=== PATIENT | female | born 1960 | race Caucasian/White ===

== ENCOUNTER 2018-10-15 13:37 | Outpatient (REF) | payer BC, SELFPAY | END 2018-10-15 13:57 | LOC: NCHCN 13:37 | PROVIDERS: PCP Family Medicine; Visit Provider Family Medicine | DX: N39.0 Urinary tract infection, site not specified (principal) | CPT/HCPCS: 87086 ==

== ENCOUNTER 2019-04-01 13:12 | Outpatient (REF) | payer BC, SELFPAY ==
--- NOTE | 2019-04-01 10:00 | PAPFT_PTH ---
PATIENT: Sabina Alvarado LOC: [facility] U#:[id number] AGE/SX: 58/F ROOM: RE04/01/[address]: Payton Hatfield : 1960 BED: DIS: 04/01/2019 SPEC #: [id number] RECD: 04/02/19 13:03 STATUS: SANKET REJose #: [id number] MAXIME: 04/01/19 10:[address]: Payton Hatfield DEPT: [facility] Cytology RECD BY: Nettie Hopper Tissues: 1 - CX/ENDOCX FOR PAP SMEARS Procedures: PAP THIN PREP/UVM Screening HPV DNA PROBE Comments: [id number]
== END 2019-04-01 13:32 ==
LOC: NCHCN 13:12
PROVIDERS: PCP Family Medicine; Visit Provider Family Medicine
DX: Z00.00 Encounter for general adult medical examination without abnormal findings (principal); Z12.4 Encounter for screening for malignant neoplasm of cervix; Z11.51 Encounter for screening for human papillomavirus (HPV)
CPT/HCPCS: 88142; 87624

== ENCOUNTER 2019-08-05 01:16 | Outpatient (CLI) | payer BC, SELFPAY ==
--- NOTE | 2019-08-05 13:00 | DI.MAMMO_ITS ---
EXAM: MG MAMMO SCREENING CLINICAL HISTORY: SCREENING Z12.31 TECHNIQUE: Mammograms were interpreted according to the usual protocol including computer analysis w [employer] CAD system, tomosynthesis and C-view imaging. COMPARISON: [id number] FINDINGS: The breasts are composed of heterogeneously dense tissue, which may obscure small masses, breast dens ity category C. There are no suspicious masses or suspicious microcalcifications. There has been no significant chagne when compared with prior images. IMPRESSION: Category 1, negative mammogram. Routine yearly screening is recommended. BI-RADS Cat 1 - Negative Breast Density - Category C - Heterogeneously dense
== END 2019-08-05 01:36 ==
PROVIDERS: PCP Family Medicine; Visit Provider Family Medicine
DX: Z12.31 Encounter for screening mammogram for malignant neoplasm of breast (principal)
CPT/HCPCS: 77063; 77067

== ENCOUNTER 2020-07-29 15:08 | Outpatient (REF) | payer BC, SELFPAY ==
[2020-08-03 22:40] LABS: Patient Race White; SARS-CoV-2 RNA Undetected (Undetected); SARS-CoV-2 Specimen Source Nasal
== END 2020-07-29 15:28 ==
LOC: NCHCN 15:08
PROVIDERS: PCP Family Medicine; Visit Provider Family Medicine
DX: Z20.828 Contact with and (suspected) exposure to other viral communicable diseases (principal)
CPT/HCPCS: U0003

== ENCOUNTER 2020-08-05 09:55 | Outpatient (REF) | payer BC, SELFPAY ==
[2020-08-05 22:29] LABS: HCT 39.1 % (36.0-46.0); HGB 13.2 g/dL (11.2-15.7); MCH 30.6 pg (27.0-33.0); MCHC 33.8 % (32.0-36.0); MCV 90.7 fL (80-95); MPV 10.2 fL (8.0-11.0); Platelet Count 256 10^3/uL (130-400); RBC 4.31 10^6/uL (3.93-5.22); RDW 10.8 % (11.7-14.6); RDW-SD 36.1 fL; WBC 5.23 10^3/uL (4.4-10.8)
[2020-08-05 22:55] LABS: ALT 30 U/L (14-59); AST 20 U/L (15-37); Alkaline Phosphatase 92 U/L (46-116); Anion Gap 6.9 mmol/L (3-11); BUN 12 mg/dL (7-18); Bilirubin, Total 0.4 mg/dL (0.2-1.0); CO2 27.1 mmol/L (21.0-32.0); CREATININE 0.59 mg/dL (0.55-1.02); Calcium 9.8 mg/dL (8.5-10.1); Calculated LDL 132 mg/dL (<100); Chloride 105 mmol/L (98-107); Cholesterol 232 mg/dL (<200); Glucose 92 mg/dL (74-106); HDL Cholesterol 60 mg/dL (40-60); Sodium 139 mmol/L (136-145); Total Protein 7.1 g/dL (6.4-8.2); Triglyceride 204 mg/dL (<150)
[2020-08-06 05:17] LABS: Vitamin D 25 Total 39.6 ng/ml (30-100)
== END 2020-08-05 10:15 ==
LOC: NCHCN 09:55
PROVIDERS: PCP Family Medicine; Visit Provider Family Medicine
DX: Z00.00 Encounter for general adult medical examination without abnormal findings (principal); Z86.79 Personal history of other diseases of the circulatory system; E78.5 Hyperlipidemia, unspecified; E55.9 Vitamin D deficiency, unspecified
CPT/HCPCS: 80053; 80061; 82306; 85027

== ENCOUNTER 2020-09-15 00:48 | Outpatient (CLI) | payer BC, SELFPAY ==
--- NOTE | 2020-09-15 11:55 | DI.MAMMO_ITS ---
EXAM: MAMMO SCREENING CLINICAL HISTORY: SCREENING,Z12.31 TECHNIQUE: Mammograms were interpreted according to the usual protocol including computer analysis w [employer] CAD system, tomosynthesis and C-view imaging. COMPARISON: FINDINGS: The breasts are heterogeneously dense. No dominant mass or clumped microcalcification is identified in either breast. The current examination is compared with previous examinations including July 17 and there has been no gross interval change in appearance in comparison with the prior studies. IMPRESSION: No specific evidence of malignancy at this time. Routine screening examinations are suggested at yea rly intervals in this age group according to the ACS ACR guidelines. BI-RADS Category 1 - Negative Breast Density - Category C - Heterogeneously dense
== END 2020-09-15 01:08 ==
PROVIDERS: PCP Family Medicine; Visit Provider Family Medicine
DX: Z12.31 Encounter for screening mammogram for malignant neoplasm of breast (principal)
CPT/HCPCS: 77063; 77067

== ENCOUNTER 2020-12-08 16:03 | Emergency (ER) | payer BC, SELFPAY ==
--- NOTE | 2020-12-08 16:06 | ED.GENADUL_ITS ---
Discharge Plan Disposition Patient Disposition: HOME Condition: Stable Discharge Details Clinical Impression: Fracture of right wrist Primary Care Provider: Payton Hatfield ED Provider: Jamaica Hough Home Meds and New Rx's Prescriptions: New oxycodone 5 mg tablet 5 mg PO Q6H PRN (Reason: pain) Qty: 10 RF: 0 Continued aspirin 81 MG tablet,delayed release (DR/EC) 81 mg PO DAILY RF: 0 calcium carbonate-vitamin D3 [Calcium 500 + D] 1 EACH tablet 1 ea PO DAILY RF: 0 Discharge Instructions Instructions: Wrist Fracture in Adults (ED) Additional Instructions: Rest, ice, and elevate the affected area as much as possible. Alternate tylenol and motrin as needed and directed for pain. Take the oxycodone for pain not relieved with tylenol or motrin. Call the orthopedics office tomorrow to schedule a follow up appointment. Return immediately to the emergency department if you develop any worsening or new concerning symptoms. Referrals: Elijah Stoll MD [ [facility] STAFF PHYSICIAN] - Discharge Data Discharge Physician: Jamaica Hough Medical Decision Making 60-year-old female with right wrist pain after fall on ice yesterday. Patient had an outpatient wrist x-ray today per her PCP which noted a nondisplaced intra-articular fracture of the distal radius. Question of a nondisplaced ulnar styloid fracture. Patient was sent to the ED per her pcp office for splint placement. Right wrist appears edematous with tenderness overlying the distal radius and ulna but without deformity. She has neurovascularly intact. Case discussed with orthopedics. A volar splint was placed and a sling was given. Patient already placed on orthopedics list per PCP office. She was given oxycodone. Usual and customary return precautions given prior to discharge. Medical Records Medical records reviewed: Yes I reviewed the patient's medical records. Imaging Data Radiologic Study: Radiologist's impression: XR WRIST RT COMPLETE CLINICAL HISTORY: PAIN RT WRIST, S/P FALL, M25.531. TECHNIQUE: 2D digital imaging was performed. COMPARISON: No exams were available for comparison FINDINGS: There is soft tissue swelling over the posterior aspect of the distal radius. There is a nondisplaced fracture seen through the distal radial metaphysis. There is slight impaction. There is extension to the articular surface but no visible separation. The ulnar styloid shows question of a nondisplaced fracture. The carpal bones are normally aligned. There are degenerative changes at the 1st carpal metacarpal joint. IMPRESSION: Nondisplaced intra-articular fracture of the distal radius. Question of a nondisplaced ulnar styloid fracture. HPI General Mode of arrival: ambulatory . Date/Time Provider Initiated Documentation: 12/08/20 16:05 . Limitations to Documentation: no limitations . Information obtained by: patient . HPI Narrative: Patient is a 60-year-old female presents for splint placement after diagnosed with a right wrist fracture on outpatient x-ray today. Patient states she slipped and fell onto her right wrist on ice yesterday. Her PCP office ordered an outpatient x-ray which was done today which noted a distal radius and possible ulnar styloid fracture. Related Data Home Medications Medication Instructions Recorded Confirmed aspirin 81 mg PO DAILY tab-cap 08/02/13 12/08/20 calcium carbonate-vitamin D3 1 ea PO DAILY 04/14/15 12/08/20 [Calcium 500 + D] oxycodone 5 mg PO Q6H PRN #10 tab 12/08/20 Previous Rx's Medication Instructions Recorded oxycodone 5 mg PO Q6H PRN #10 tab 12/08/20 Allergies Allergy/AdvReac Type Severity Reaction Status Date / Time egg AdvReac Mild NAUSEA Unverified 12/08/20 16:14 Review of Systems All systems reviewed & are unremarkable except as noted in HPI and below PFSH Medical History (Updated 12/08/20 @ 17:19 by Jamaica Hough DO) No significant past medical history Surgical History (Updated 12/08/20 @ 17:19 by Jamaica Hough DO) No significant past surgical history Family History Mother Diabetes Essential hypertension Hyperlipidemia Father Diabetes Essential hypertension Personal history of malignant neoplasm COLON Hyperlipidemia Grandfather Heart disease Grandfather Diabetes Essential hypertension Hyperlipidemia Grandmother Essential hypertension Stroke Grandmother Diabetes Hyperlipidemia Social History Smoking/Tobacco Use Status: Former Tobacco Use Smoking risk assessment performed?: Yes Alcohol Intake: never Drug use: Never Exam Const General: cooperative, healthy appearing and no acute distress HENMT Head: normal to inspection Mouth: oral mucosae normal Eyes General: appearance normal, both eyes and all related structures Neck Neck: normal visual inspection Resp Effort & Inspection: normal respiratory effort and able to speak in complete sentences Cardio Rate: regular rate Skin General skin exam: no rashes or lesions noted Neuro General: patient alert, patient awake and patient oriented x3 Motor: muscle tone normal throughout Extrem General: capillary refill normal Elbow/forearm/wrist images: 1. Edema and tenderness. No deformity. Other: Limited range of motion right wrist due to pain. No deformity noted. Psych Appearance: grossly normal Affect: normal affect Procedures Orthopedic Splinting/Casting Injury #1: Side: right Upper Extremity Injury Location: wrist Upper Extremity Immobilizer: volar splint
[2020-12-08 16:10] VITALS: BP 146/80; PULSE 114; RESP 16; TEMP 36.6; O2SAT 98
== END 2020-12-08 17:04 | disposition home or self-care (01) ==
PROVIDERS: Emergency Provider Physician Assistant; PCP Family Medicine
DX: S52.571A Other intraarticular fracture of lower end of right radius, initial encounter for closed fracture (principal); W00.0XXA Fall on same level due to ice and snow, initial encounter
CPT/HCPCS: 29125; 99284; 99283

== ENCOUNTER 2020-12-08 19:27 | Outpatient (CLI) | payer BC, SELFPAY ==
--- NOTE | 2020-12-08 14:11 | DI.RAD_ITS ---
EXAM: XR WRIST RT COMPLETE CLINICAL HISTORY: PAIN RT WRIST, S/P FALL, M25.531. TECHNIQUE: 2D digital imaging was performed. COMPARISON: No exams were available for comparison FINDINGS: There is soft tissue swelling over the posterior aspect of the distal radius. There is a nondisplace d fracture seen through the distal radial metaphysis. There is slight impaction. There is extension to the articular surface but no visible separation. The ulnar styloid shows question of a nondispla mariaelena fracture. The carpal bones are normally aligned. There are degenerative changes at the 1st carp al metacarpal joint. IMPRESSION: Nondisplaced intra-articular fracture of the distal radius. Question of a nondisplaced ulnar styloid fracture. DATA REPOSITORY: RADIATION DOSE DELIVERED:
== END 2020-12-08 19:28 ==
LOC: DI 12-10 19:27
PROVIDERS: PCP Family Medicine; Visit Provider Family Medicine
DX: M25.531 Pain in right wrist (principal); S52.571A Other intraarticular fracture of lower end of right radius, initial encounter for closed fracture
CPT/HCPCS: 73110

== ENCOUNTER 2020-12-16 10:17 | Outpatient (CLI) | payer BC, SELFPAY ==
--- NOTE | 2020-12-16 09:00 | DI.RAD_ITS ---
EXAM: XR WRIST RT COMPLETE CLINICAL HISTORY: right distal radius fracture. TECHNIQUE: 2D digital imaging was performed. COMPARISON: No exams were available for comparison FINDINGS: BONES: There has been no change in alignment of the distal right radial fracture. No new fracture or dislocation is seen. No bony destructive lesion is seen. JOINTS: The carpal bones are normally aligned. Marked degenerative changes are seen at the 1st CMC darnell int. SOFT TISSUE: Mild soft tissue swelling around the wrist. IMPRESSION: Stable distal right radial fracture. DATA REPOSITORY: RADIATION DOSE DELIVERED:
== END 2020-12-16 10:18 | disposition home or self-care (01) ==
LOC: DIORS 10:18
PROVIDERS: PCP Family Medicine; Visit Provider Physician Assistant
DX: S52.591A Other fractures of lower end of right radius, initial encounter for closed fracture (principal)
CPT/HCPCS: 73110

== ENCOUNTER 2020-12-23 14:34 | Outpatient (CLI) | payer BC, SELFPAY ==
--- NOTE | 2020-12-23 09:15 | DI.RAD_ITS ---
EXAM: XR WRIST RT LIMITED CLINICAL HISTORY: F/U. TECHNIQUE: 2D digital imaging was performed. COMPARISON: CR XR WRIST RT COMPLETE from 12/16/2020 FINDINGS: BONES: There has been no change in alignment of the healing distal right radial fracture. No new fra cture or dislocation. No bony destructive lesion is seen. JOINTS: Moderate degenerative changes are seen at the 1st CMC joint. SOFT TISSUE: Normal. IMPRESSION: Stable distal radial fracture. DATA REPOSITORY: RADIATION DOSE DELIVERED:
== END 2020-12-23 14:35 | disposition home or self-care (01) ==
LOC: DIORS 14:34
PROVIDERS: PCP Family Medicine; Referring Provider Family Medicine; Visit Provider Student in an Organized Health Care Education/Training Program
DX: S52.591A Other fractures of lower end of right radius, initial encounter for closed fracture (principal)
CPT/HCPCS: 73100

== ENCOUNTER 2021-08-04 09:14 | Outpatient (REF) | payer BC, SELFPAY ==
[2021-08-04 22:13] LABS: HCT 41.6 % (36.0-46.0); HGB 13.7 g/dL (11.2-15.7); MCHC 32.9 % (32.0-36.0); MPV 10.3 fL (8.0-11.0); Platelet Count 292 10^3/uL (130-400); RBC 4.57 10^6/uL (3.93-5.22); RDW 10.9 % (11.7-14.6); RDW-SD 36.7 fL; WBC 4.75 10^3/uL (4.4-10.8)
[2021-08-04 22:27] LABS: ALT 21 U/L (14-59); AST 15 U/L (15-37); Albumin 4.5 g/dL (3.4-5.0); Alkaline Phosphatase 107 U/L (46-116); Anion Gap 6.3 mmol/L (3-11); BUN 14 mg/dL (7-18); Bilirubin, Total 0.4 mg/dL (0.2-1.0); CO2 30.7 mmol/L (21.0-32.0); CREATININE 0.7 mg/dL (0.55-1.02); Calcium 10.4 mg/dL (8.5-10.1); Calculated LDL 176 mg/dL (<100); Chloride 105 mmol/L (98-107); Cholesterol 275 mg/dL (<200); Glucose 94 mg/dL (74-106); HDL Cholesterol 73 mg/dL (40-60); Potassium 4.4 mmol/L (3.5-5.1); Sodium 142 mmol/L (136-145); Total Protein 7.6 g/dL (6.4-8.2); Triglyceride 134 mg/dL (<150)
== END 2021-08-04 09:15 | disposition home or self-care (01) ==
LOC: NCHCN 09:14
PROVIDERS: PCP Family Medicine; Visit Provider Family Medicine
DX: E78.5 Hyperlipidemia, unspecified (principal); R11.0 Nausea; Z00.00 Encounter for general adult medical examination without abnormal findings
CPT/HCPCS: 80053; 80061; 85027

== ENCOUNTER 2021-11-17 11:34 | Outpatient (REF) | payer BC, SELFPAY ==
[2021-11-17 15:20] LABS: ALT 26 U/L (14-59); AST 18 U/L (15-37); Albumin 3.8 g/dL (3.4-5.0); Alkaline Phosphatase 98 U/L (46-116); Bilirubin, Direct 0.1 mg/dL (0.0-0.2); Bilirubin, Total 0.4 mg/dL (0.2-1.0); Total Protein 6.9 g/dL (6.4-8.2)
[2021-11-17 15:38] LABS: Calculated LDL 167 mg/dL (<100); Cholesterol 256 mg/dL (<200); HDL Cholesterol 66 mg/dL (40-60); Triglyceride 119 mg/dL (<150)
== END 2021-11-17 11:35 | disposition home or self-care (01) ==
LOC: NCHCN 11:34
PROVIDERS: PCP Family Medicine; Visit Provider Family Medicine
DX: E78.5 Hyperlipidemia, unspecified (principal)
CPT/HCPCS: 80061; 80076

== ENCOUNTER 2022-03-07 09:58 | Outpatient (REF) | payer BC, SELFPAY ==
[2022-03-07 17:01] LABS: ALT 27 U/L (14-59); AST 22 U/L (15-37); Albumin 4.4 g/dL (3.4-5.0); Alkaline Phosphatase 104 U/L (46-116); Bilirubin, Direct 0.1 mg/dL (0.0-0.2); Bilirubin, Total 0.6 mg/dL (0.2-1.0); Calculated LDL 151 mg/dL (<100); Cholesterol 252 mg/dL (<200); HDL Cholesterol 79 mg/dL (40-60); Total Protein 7.4 g/dL (6.4-8.2); Triglyceride 111 mg/dL (<150)
[2022-03-07 17:55] LABS: Creatine Kinase 53 U/L (26-192)
== END 2022-03-07 09:59 | disposition home or self-care (01) ==
LOC: NCHCN 09:58
PROVIDERS: PCP Family Medicine; Visit Provider Family Medicine
DX: E78.5 Hyperlipidemia, unspecified (principal); Z86.79 Personal history of other diseases of the circulatory system
CPT/HCPCS: 80061; 80076; 82550

== ENCOUNTER → 2022-03-10 02:32 | Outpatient (CLI) | payer BC, SELFPAY ==
--- NOTE | 2022-03-10 12:50 | DI.MAMMO_ITS ---
Exam(s) MAMMO SCREENING EXAM: MAMMO SCREENING CLINICAL HISTORY: SCREENING, Z12.31 TECHNIQUE: Bilateral full field digital CC and MLO mammographic images were obtained with 3D tomosyn thesis and utilizing computer aided detection (CAD). COMPARISON: Available for comparison. FINDINGS: Masses/Architectural Distortion: None seen. Microcalcifications: No suspicious pleomorphic-type are seen. Skin Thickening/Nipple Retraction: None. IMPRESSION: 1. No significant interval change with no specific features of malignancy noted. 2. Unless there is more urgent need, screening mammography is recommended, as per [employer] guidelines. BI-RADS Category 1 - Negative Breast Density - Category C - Heterogeneously dense Breast density category C or D implies that the patient has dense breast tissue. Dense breast tissue is very common and is not abnormal but dense breast tissue can make it harder to find cancer on a ma mmogram. Also, dense breast tissue may increase their breast cancer risk. This information about the result of the mammogram report was provided to the patient to raise their awareness. Use this report when you speak with the patient about their risks for breast cancer, which includes their family hist ory. At that time, you may recommend for more screening tests (Ultrasound or MRI) as they might be us eful based on their risk. A negative radiographic report should not delay biopsy if a dominant or clinically suspicious mass is present. Up to ten percent of cancers are not identified on mammography. A negative report may reinforce clinical impression. Adenosis and dense breasts may obscure an underlying neoplasm. False positive reports average 6 to 10%. Patient will receive a letter notifying them of these results.
== END ==
PROVIDERS: PCP Family Medicine; Visit Provider Family Medicine
DX: Z12.31 Encounter for screening mammogram for malignant neoplasm of breast (principal)
CPT/HCPCS: 77063; 77067

== ENCOUNTER 2022-07-20 16:15 | Outpatient (REF) | payer BC, SELFPAY ==
[2022-07-20 15:53] LABS: ALT 28 U/L (14-59); AST 18 U/L (15-37); Albumin 4.3 g/dL (3.4-5.0); Alkaline Phosphatase 94 U/L (46-116); Bilirubin, Total 0.5 mg/dL (0.2-1.0); Calculated LDL 114 mg/dL (<100); Cholesterol 209 mg/dL (<200); HDL Cholesterol 81 mg/dL (40-60); Total Protein 7.3 g/dL (6.4-8.2); Triglyceride 74 mg/dL (<150)
[2022-07-20 17:43] LABS: Bilirubin, Direct 0.1 mg/dL (0.0-0.2); Creatine Kinase 43 U/L (26-192)
== END 2022-07-20 16:16 | disposition home or self-care (01) ==
LOC: NCHCN 16:15
PROVIDERS: PCP Family Medicine; Visit Provider Family Medicine
DX: E78.5 Hyperlipidemia, unspecified (principal); E55.9 Vitamin D deficiency, unspecified; Z00.00 Encounter for general adult medical examination without abnormal findings; Z86.79 Personal history of other diseases of the circulatory system
CPT/HCPCS: 80061; 80076; 82550

== ENCOUNTER 2023-01-03 09:18 | Outpatient (REF) | payer BC, SELFPAY ==
[2023-01-03 15:54] LABS: ALT 23 U/L (14-59); AST 19 U/L (15-37); Alkaline Phosphatase 89 U/L (46-116); Anion Gap 6.4 mmol/L (3-11); BUN 13 mg/dL (7-18); Bilirubin, Total 0.5 mg/dL (0.2-1.0); CO2 29.6 mmol/L (21.0-32.0); CREATININE 0.7 mg/dL (0.55-1.02); Calcium 9.7 mg/dL (8.5-10.1); Calculated LDL 126 mg/dL (<100); Chloride 106 mmol/L (98-107); Cholesterol 230 mg/dL (<200); Estimated GFR 97.12 (mL/min/1.73m2); Glucose 96 mg/dL (74-106); HDL Cholesterol 80 mg/dL (40-60); Potassium 4.3 mmol/L (3.5-5.1); Sodium 142 mmol/L (136-145); Total Protein 6.8 g/dL (6.4-8.2); Triglyceride 120 mg/dL (<150)
[2023-01-03 16:20] LABS: Vitamin D 25 Total 36.9 ng/mL (30-100)
== END 2023-01-03 09:19 | disposition home or self-care (01) ==
LOC: NCHCN 09:18
PROVIDERS: PCP Family Medicine; Visit Provider Family Medicine
DX: Z00.00 Encounter for general adult medical examination without abnormal findings (principal); F41.8 Other specified anxiety disorders; E78.5 Hyperlipidemia, unspecified; E55.9 Vitamin D deficiency, unspecified
CPT/HCPCS: 80053; 80061; 82306

== ENCOUNTER 2023-08-22 12:42 | Outpatient (REF) | payer BC, SELFPAY ==
[2023-08-22 15:31] LABS: Calculated LDL 148 mg/dL (<100); Cholesterol 251 mg/dL (<200); HDL Cholesterol 82 mg/dL (40-60); Triglyceride 109 mg/dL (<150)
== END 2023-08-22 12:43 | disposition home or self-care (01) ==
LOC: NCHCN 12:42
PROVIDERS: PCP Family Medicine; Visit Provider Family Medicine
DX: Z00.00 Encounter for general adult medical examination without abnormal findings (principal); E78.5 Hyperlipidemia, unspecified
CPT/HCPCS: 80061

== ENCOUNTER 2024-03-28 20:33 | Outpatient (REF) | payer BC, SELFPAY ==
[2024-03-28 16:45] LABS: HCT 40.2 % (36.0-46.0); HGB 13.1 g/dL (11.2-15.7); MCH 30.3 pg (27.0-33.0); MCHC 32.6 % (32.0-36.0); MCV 93 fL (80-95); MPV 10.2 fL (8.0-11.0); Platelet Count 262 10^3/uL (130-400); RBC 4.33 10^6/uL (3.93-5.22); RDW 10.9 % (11.7-14.6); RDW-SD 37.2 fL; WBC 5.06 10^3/uL (4.4-10.8)
[2024-03-28 17:16] LABS: ALT 31 U/L (14-59); AST 24 U/L (15-37); Albumin 4.1 g/dL (3.4-5.0); Alkaline Phosphatase 84 U/L (46-116); Anion Gap 8.7 mmol/L (3-11); BUN 14 mg/dL (7-18); Bilirubin, Total 0.4 mg/dL (0.2-1.0); CO2 29.3 mmol/L (21.0-32.0); CREATININE 0.6 mg/dL (0.55-1.02); Calcium 10.2 mg/dL (8.5-10.1); Calculated LDL 95 mg/dL (<100); Chloride 105 mmol/L (98-107); Cholesterol 195 mg/dL (<200); Estimated GFR 100.17 (mL/min/1.73m2); Glucose 102 mg/dL (74-106); HDL Cholesterol 79 mg/dL (40-60); Potassium 4.5 mmol/L (3.5-5.1); Sodium 143 mmol/L (136-145); Triglyceride 109 mg/dL (<150)
== END 2024-03-28 20:34 | disposition home or self-care (01) ==
LOC: NCHCN 20:33
PROVIDERS: PCP Family Medicine; Visit Provider Family Medicine
DX: E55.9 Vitamin D deficiency, unspecified (principal); Z00.00 Encounter for general adult medical examination without abnormal findings; R03.0 Elevated blood-pressure reading, without diagnosis of hypertension; E78.5 Hyperlipidemia, unspecified
CPT/HCPCS: 80053; 80061; 82306; 85027

== ENCOUNTER 2024-04-15 12:26 | Outpatient (REF) | payer BC, SELFPAY ==
--- NOTE | 2024-04-15 16:00 | PAPFT_PTH ---
PATIENT: Sabina Alvarado LOC: [facility]#:[id number] AGE/SX: 63/F ROOM: RE04/15/[address]: Payton Hatfield : 1960 BED: DIS: 04/15/2024 SPEC #: [id number] RECD: 04/16/24 13:40 STATUS: SANKET MULLEN #: [id number] MAXIME: 04/15/24 16:[address]: Payton Hatfield DEPT: [facility] Cytology RECD BY: Nettie Hopper Tissues: 1 - CX/ENDOCX FOR PAP SMEARS Procedures: PAP THIN PREP/UVM Screening Comments: [id number] (HPV - QNS)
== END 2024-04-15 12:27 | disposition home or self-care (01) ==
LOC: NCHCN 12:26
PROVIDERS: PCP Family Medicine; Visit Provider Family Medicine
DX: Z12.4 Encounter for screening for malignant neoplasm of cervix (principal)
CPT/HCPCS: 88142

== ENCOUNTER 2024-07-10 01:54 | Outpatient (CLI) | payer MEDICARE, BC, SELFPAY ==
--- NOTE | 2024-07-10 | DI.MAMMO_ITS ---
Exam(s) MAMMO SCREENING EXAM: MAMMO SCREENING CLINICAL HISTORY: screening, Z12.31 TECHNIQUE: Bilateral full field digital CC and MLO mammographic images were obtained with 3D tomosyn thesis and utilizing computer aided detection (CAD). COMPARISON: Available for comparison. FINDINGS: Masses/Architectural Distortion: There are stable bilateral breast nodules. No new nodules or areas of architectural distortion are seen. Microcalcifications: No suspicious pleomorphic-type are seen. Skin Thickening/Nipple Retraction: None. IMPRESSION: 1. No significant interval change with no specific features of malignancy noted. 2. Unless there is more urgent need, screening mammography is recommended, as per [employer] guidelines. BI-RADS Category 2 - Benign Findings Breast Density - Category C - Heterogeneously dense Breast density category C or D implies that the patient has dense breast tissue. Dense breast tissue is very common and is not abnormal but dense breast tissue can make it harder to find cancer on a ma mmogram. Also, dense breast tissue may increase their breast cancer risk. This information about the result of the mammogram report was provided to the patient to raise their awareness. Use this report when you speak with the patient about their risks for breast cancer, which includes their family hist ory. At that time, you may recommend for more screening tests (Ultrasound or MRI) as they might be us eful based on their risk. A negative radiographic report should not delay biopsy if a dominant or clinically suspicious mass is present. Up to ten percent of cancers are not identified on mammography. A negative report may reinforce clinical impression. Adenosis and dense breasts may obscure an underlying neoplasm. False positive reports average 6 to 10%. Patient will receive a letter notifying them of these results.
== END 2024-07-10 02:14 ==
LOC: DI 01:54
PROVIDERS: PCP Family Medicine; Visit Provider Family Medicine
DX: Z12.31 Encounter for screening mammogram for malignant neoplasm of breast (principal)
CPT/HCPCS: 77063; 77067

== ENCOUNTER → 2024-12-19 10:02 | Outpatient (BNVA) | payer MEDICARE, SELFPAY | PROVIDERS: PCP Family Medicine; Referring Provider Family Medicine; Visit Provider Student in an Organized Health Care Education/Training Program | DX: Z12.11 Encounter for screening for malignant neoplasm of colon (principal); Z80.0 Family history of malignant neoplasm of digestive organs ==

== ENCOUNTER 2024-12-27 09:10 | Day surgery (SDC) | payer MEDICARE, SELFPAY ==
--- NOTE | 2024-12-26 19:07 | PDOC.DSDIS_ITS ---
Date of service: 12/27/24 Discharge Plan Disposition Patient Disposition: Home Condition: Good Discharge Details Reason For Visit: screening colonocsopy Attending Provider: Pavan Mcclain Primary Care Provider: Payton Hatfield Home Meds and New Rx's Prescriptions: Continued cholecalciferol (vitamin D3) 50 mcg (2,000 unit) capsule 50 mcg PO DAILY omega-3 fatty acids 500 mg capsule 500 mg PO DAILY magnesium 200 mg tablet 200 mg PO DAILY aspirin 81 MG tablet,delayed release (DR/EC) 81 mg PO DAILY pravastatin 40 mg tablet 40 mg PO DAILY calcium 500 mg tablet 500 mg PO DAILY Discontinued polyethylene glycol 3350 17 gram/dose powder 238 g PO ONCE Qty: 238 0RF Rx Instructions: take per colonoscopy instructions bisacodyl [Dulcolax (bisacodyl)] 5 mg tablet,delayed release (DR/EC) 5 mg PO ONCE Qty: 4 0RF Rx Instructions: take per colonoscopy instructions Discharge Instructions Additional Instructions: Sabina, it was very nice meeting you today, and I hope you feel well after the pro cedure. Everything went very smoothly. Your prep was outstanding and I could see everything fine. Your colonoscopy was totally normal today. As we discussed before hand, because of your family history, I would recommend keeping your screening intervals to 5 years. 1. If tolerated, consume a soft, low fiber diet for 1-2 days. 2[address] Do not drive, drink alcohol, operate machinery, make critical decisions, or do activities that require coordination or balance for 24 hours. 3. Because air was put into your colon during the procedure, expelling air from your rectum (passing gas or farting) is normal. 4. You may not have a bowel movement for 1-3 days because of the colonoscopy prep. This is normal. 5. Go directly to the emergency room if you notice any of the following: Develop chills (warm to touch), or if you have a thermometer and your temperature is above 101 Difficulty breathing or difficultly swallowing Persistent vomiting Severe abdominal pain, other than gas cramps Severe chest pain Black, tarry stools Any bleeding ? exceeding one tablespoon 6. Call your physician if the site where your intravenous was started becomes red, swollen, painful, and warm to touch. 7. Your physician has reviewed your pre-procedure medications. Please continue to take those medications as previously ordered. You will be given specific information/education regarding any changes to your medications before leaving. Activity:: Activity as Tolerated Diet:: As Tolerated Discharge Orders Discharge Orders: Discharge Order (Routine); Ordered 12/26/24 Ordered By: Pavan Mcclain DS: Diagnosis Discharge Diagnosis (1) Encounter for screening colonoscopy: Status: Acute Asessment and Plan: Negative screening colonoscopy; based on family history, I recommend a 5-year interval for the next screening colonoscopy
--- NOTE | 2024-12-26 19:08 | COLE_ITS ---
Date of service: 12/27/24 Time of Service: 12:39 Colonoscopy Report Date of procedure: 12/27/24 Pre-op diagnosis general: screening colonoscopy Post-op diagnosis procedure note: other (Negative screening colonoscopy) Procedure: colonoscopy Surgeon: Pavan Mcclain Anesthesia Type: General:No Airway Estimated blood loss (mL): 0 Pathology: none sent Complications: None Disposition: same day Indications: Sabina is a 64 year old owman with a family history of colon cancer who needs a screening colonoscopy Prep: Miralax/Dulcolax Procedure Start Time: 12:13 Procedure End Time: 12:29 Retraction Time: 6 Findings: Negative screening colonoscopy Procedure Description: After the induction of monitored anesthetic care, and with the patient in left lateral decubitus position, I began by performing an external anorectal exam.? Perineum and skin were normal, as was the anal verge.? There was no evidence of external hemorrhoids.? Next, I performed a digital rectal exam.? I did not appreciate any abnormal findings.? Next, I advanced a colonoscope into the rectal vault.? I performed retroflexion.? This appeared normal.? Using insufflation, I then advanced the colonoscope beyond the rectal folds and into the sigmoid colon before advancing towards the cecum.? The quality of the prep was outstanding.? The scope was noted to be in the cecum by identification of the ileocecal valve and appendiceal orifice.? I then began withdrawing the colonoscope using repeated irrigation as necessary for full evaluation of the colonic mucosa. ?Once the scope was withdrawn to the level of the rectum, great care was taken to examine portions of the rectal folds.? I saw no signs of tumors, polyps, or any other worrisome pathology. Finally, the scope was withdrawn and the patient was brought to the same-day surgery recovery unit as the anesthetic wore off. ?The findings and instructions were shared with the patient prior to discharge. [place] Bowel Prep [place] Bowel Prep Right Colon: 3 Left Colon: 3 Transverse Colon: 3 Total Score: 9
[2024-12-27 09:23] VITALS: BP 122/81; PULSE 80; RESP 16; TEMP 36.4; O2SAT 100
[2024-12-27] MEDS: Lactated Ringers 1,000 ML 80 ML IV (09:45)
[2024-12-27 12:06] VITALS: BMI 24.0
--- NOTE | 2024-12-27 12:06 | W.ANESPRE ---
General Info Date of Service Date Performed: 12/27/24 Height: 5 ft 1 in Weight: 57.8 kg Body Mass Index (BMI): 24.0 Surgical Procedure: Operation Date: 12/27/24 10:35 Proposed Procedure Side Surgeon p Rose Mcclain MD Meds Allergies and Home Medications Allergies Allergy/AdvReac Type Severity Reaction Status Date / Time atorvastatin Allergy Severe rash Verified 12/27/24 09:25 rosuvastatin (From Crestor) Allergy Severe rash Verified 12/27/24 09:25 egg AdvReac Mild NAUSEA Unverified 12/27/24 09:25 Home Medication ?Medication ?Instructions ?Recorded aspirin 81 mg tablet,delayed 81 mg PO DAILY 08/02/13 release magnesium 200 mg tablet 200 mg PO DAILY 12/16/20 omega-3 fatty acids 500 mg capsule 500 mg PO DAILY 12/16/20 pravastatin 40 mg tablet 40 mg PO DAILY 12/12/24 cholecalciferol (vitamin D3) 50 50 mcg PO DAILY 12/19/24 mcg (2,000 unit) capsule calcium 500 mg tablet 500 mg PO DAILY 12/24/24 Current Visit Medications: Current Medications Generic Name Dose Route Start Last Admin Trade Name Freq PRN Reason Stop Dose Admin Ringer's Solution 1,000 mls @ 80 mls/hr 12/27/24 06:00 12/27/24 09:45 IV 12/27/24 23:59 80 mls/hr INFUSION JEFERSON Administration IV Miscellaneous Supplies 1 each 12/27/24 06:00 Iv Access IV 12/27/24 23:59 DIRECTED JEFERSON Ondansetron HCl 4 mg 12/26/24 19:10 Ondansetron 4 Mg/2 Ml Vial IVP 01/25/25 19:09 Q4H PRN PRN Nausea / Vomiting Sodium Chloride 0 ml 12/27/24 06:00 Normal Saline Flush 10 Ml Syr IV 12/27/24 23:59 PRN PRN Sodium Chloride 0 ml 12/27/24 06:00 Normal Saline 10 Ml Vial IJ 12/27/24 23:59 DIRECTED PRN Sterile Water 0 ml 12/27/24 06:00 Water,Injection,Sterile 10 Ml Vial IJ 12/27/24 23:59 DIRECTED PRN PFSH Active Problems Active Problems: Problem Status Onset Code Encounter for screening colonoscopy Acute Z12.11 GERD (gastroesophageal reflux disease) Chronic K21.9 Closed fracture of right distal radius Acute 12/07/20 S52.501A Medical History Medical History Colitis Skin lesion Anxiety disorder Hyperlipidemia Vitamin D deficiency Hemangioma No significant past medical history Surgical History Surgical History History of colonoscopy No significant past surgical history Tobacco Smoking/Tobacco Use Status: Former Tobacco Use Alcohol Alcohol Intake: current Alcohol intake frequency: holidays/special occasions only Substance Use Substance use: Never Substance use type: does not use Vital Signs and Lab Results Vital Signs Most Recent Vital Signs in EMR: Most Recent Vital Signs Temp Pulse Resp BP Pulse Ox 36.4 C L 80 16 122/81 100 12/27/24 09:23 12/27/24 09:23 12/27/24 09:23 12/27/24 09:23 12/27/24 09:23 Lab Results Blood Type / Crossmatch: No Data to Display Complete Blood Count: No Data to Display Complete Metabolic Panel: No Data to Display Liver Function Panel: No Data to Display Coagulation Panel: No Data to Display Cardiac Panel: No Data to Display Arterial Blood Gas: No Data to Display Venous Blood Gas: No Data to Display Pancreas Panel: No Data to Display Thyroid Panel: No Data to Display Infectious Disease: No Data to Display Blood Cultures: No Data to Display Toxicology Panel: No Data to Display Anesthesia Assessment and Plan Anesthesia History Personal History: No History of Anesthesia Complications Family History: No Family History of Anesthesia Complications Exercise Tolerance Exercise Tolerance: Metabolic Equivalents>4 Pertinent Negatives Pertinent Negatives: No Major Cardiovascular Symptoms or Complaints, No Major Pulmonary Symptoms or Complaints and No History of CVA/TIA Cardiac & Pulmonary Exam Cardiac Exam: Normal S1/S2 Heart Sounds Pulmonary Exam: Clear Bilateral Breath Sounds Cardiac and Pulmonary Comment:: Well controlled GERD Implantable Cardiac Device Does patient have a Pacemaker or an ICD?: No Airway Exam Known Difficult Airway: No Mallampati Class: 2 Mouth Opening: Normal (> 3cm) Thyromental Distance: Greater than 3 cm Neck Range of Motion: Full ROM Neck Circumference: Normal Teeth Condition: Normal Dentition ASA Classification ASA Score: ASA 2 Emergency Case?: No NPO Status NPO Status: NPO Clears >2 hours, Solids >8 hours Anesthesia Plan Resuscitation Status: Full Code Anesthesia Technique: General Anesthesia Airway Planned: Natural Airway Monitors Used: Standard Monitors
[2024-12-27 12:33] VITALS: BP 107/78; PULSE 113; RESP 18; TEMP 36.3; O2SAT 98
[2024-12-27 12:55] VITALS: BP 113/71; PULSE 89; RESP 20; TEMP 36.5; O2SAT 95
--- NOTE | 2024-12-27 13:47 | W.ANESPOSTOP ---
Postoperative Evaluation Date, Time and Location Date Performed: 12/27/24 Time Performed: 13:47 Patient Location: Day Surgery Unit Vital Signs Most Recent Imported Vital Signs: Most Recent Vital Signs Temp Pulse Resp BP Pulse Ox 36.5 C 89 20 113/71 95 12/27/24 12:55 12/27/24 12:55 12/27/24 12:55 12/27/24 12:55 12/27/24 12:55 Pain Score Most Recent Pain Score: Most Recent Pain Score Pain Level 0 12/27/24 09:23 Assessment Mental Status: Awake (Alert & Oriented to Patient Baseline) Airway and Respiratory Function: Patent airway with normal (patient baseline) respiratory exam Cardiovascular Function: Hemodynamically Stable Hydration Status: Adequately Hydrated Nausea & Vomiting: No Nausea or Vomiting Pain: Pt. Denies Any Pain Peripheral Nerve Block: Patient did not receive a nerve block
== END 2024-12-27 13:22 | disposition home or self-care (01) ==
LOC: SUR 09:10
PROVIDERS: PCP Family Medicine; Visit Provider Surgery
PROC: 0DJD8ZZ Inspection of Lower Intestinal Tract, Via Natural or Artificial Opening Endoscopic (ICD-10-PCS; CPT 45378; principal; 2024-12-27 10:30)
DX: Z12.11 Encounter for screening for malignant neoplasm of colon (principal); Z80.8 Family history of malignant neoplasm of other organs or systems
CPT/HCPCS: G0105; J2704

== ENCOUNTER 2025-04-09 01:38 | Outpatient (CLI) | payer MEDICARE, SELFPAY ==
[2025-04-09 16:47] LABS: HCT 41.3 % (36.0-46.0); MCH 30.7 pg (27.0-33.0); MCHC 33.9 % (32.0-36.0); MCV 91 fL (80-95); MPV 9.5 fL (8.0-11.0); Platelet Count 259 10^3/uL (130-400); RBC 4.56 10^6/uL (3.93-5.22); RDW 10.9 % (11.7-14.6); RDW-SD 36.1 fL; WBC 5.76 10^3/uL (4.4-10.8)
[2025-04-10 01:03] LABS: ALT 40 U/L (14-59); AST 26 U/L (15-37); Albumin 4.5 g/dL (3.4-5.0); Alkaline Phosphatase 112 U/L (46-116); Anion Gap 8.7 mmol/L (3-11); BUN 14 mg/dL (7-18); Bilirubin, Total 0.4 mg/dL (0.2-1.0); CO2 28.3 mmol/L (21.0-32.0); CREATININE 0.7 mg/dL (0.55-1.02); Calcium 9.9 mg/dL (8.5-10.1); Calculated LDL 118 mg/dL (<100); Chloride 103 mmol/L (98-107); Cholesterol 221 mg/dL (<200); Estimated GFR 95.92 (mL/min/1.73m2); Glucose 90 mg/dL (74-106); HDL Cholesterol 69 mg/dL (>or=50); Potassium 3.9 mmol/L (3.5-5.1); Sodium 140 mmol/L (136-145); Total Protein 7.6 g/dL (6.4-8.2); Triglyceride 171 mg/dL (<150)
[2025-04-11 12:06] LABS: Varicella IgG Antibody Positive (See Note)
[2025-04-11 12:58] LABS: TB Interpretation Negative (Negative); TB1 Ag minus Nil 0.01 IU/mL
== END 2025-04-09 01:39 | disposition home or self-care (01) ==
LOC: LBO 01:39
PROVIDERS: PCP Family Medicine; Visit Provider Family Medicine
DX: E78.5 Hyperlipidemia, unspecified (principal); Z11.9 Encounter for screening for infectious and parasitic diseases, unspecified; R03.0 Elevated blood-pressure reading, without diagnosis of hypertension
CPT/HCPCS: 36415; 80053; 80061; 85027; 86787; 86480

== ENCOUNTER 2025-09-30 13:14 | Outpatient (CLI) | payer MEDICARE, SELFPAY ==
[2025-09-30 23:46] LABS: HBs Antibody, Quant <3.1 mIU/mL (See Note); Hepatitis B Surface Ab Negative (See Note)
== END 2025-09-30 13:15 | disposition home or self-care (01) ==
LOC: LBO 13:15
PROVIDERS: PCP Family Medicine; Visit Provider Family Medicine
DX: Z11.59 Encounter for screening for other viral diseases (principal)
CPT/HCPCS: 36415; 86706